=== PATIENT | male | born 2000 | race Caucasian/White ===

== ENCOUNTER 2020-12-11 16:53 | Emergency (ER) | payer BC ==
[2020-12-11] MEDS ORDERED: Fluorescein Opthalmic Strip ONE (17:25)
[2020-12-11] MEDS ORDERED: Proparacaine 0.5% Opth 15 ML BOT ONE (17:26)
== END 2020-12-11 18:05 | disposition home or self-care (01) ==
LOC: CSHERS 16:53
DX: S05.02XA Injury of conjunctiva and corneal abrasion without foreign body, left eye, initial encounter (principal); W22.8XXA Striking against or struck by other objects, initial encounter; Y99.0 Civilian activity done for income or pay
CPT/HCPCS: 99283